=== PATIENT | female | born 1965 | race Caucasian/White ===

== ENCOUNTER 2017-07-23 16:55 | Emergency (ER) | payer OTHER ==
[~2017-07-23] VITALS: Ht 177.8 cm; Wt 90.7 kg
--- NOTE | ~2017-07-23 | EKG ---
[address] [address] ELECTROCARDIOGRAM REPORT Name: ANT HAZEL Room #: [facility]#: [id number] Admission: 07/23/17 Attend Phys: Discharge: 07/23/17 Date of : 69 Report #: [id number] THIS REPORT FOR: //name// [facility] ED Test Date: 2017-07-23 Test Time: 17:22:33 Pat Name: ANT HAZEL Department: Room: Gender: F [employer] Director: MZOOK : 1965 Requested By: Ronald Leroy Order Number: [id number] MD: Jermaine Asher Measurements Intervals [place] Rate: 89 P: 51 NV: 138 QRS: 11 QRSD: 80 T: 51 QT: 377 QTc: 459 Interpretive Statements Sinus rhythm No significant abnormality No previous ECG available for comparison Electronically Signed On 07-24-2017 7:59:00 CDT by Jermaine Asher [email or web address] <ELECTRONICALLY SIGNED> By: Jermaine Asher MD, [facility] 07/24/17 [id number] 1722 1722 Jermaine Asher MD, FACC /EPI
[~2017-07-23 16:55] MED LIST: BUSPAR30 MG PO; CIPROFLOXACIN500 M1 PO; CLONAZEPAM 0.50.5 M1; FENOFIBRATE160 MG; HYDROCODON-ACE1 EAC5; HYDROXYZINE HCL50 MG; LEVSIN0.125 MG PO; MIRAPEX0.125 MG; OMEPRAZOLE40 MG; PAROXETINE HCL20 MG; PERCOCET 5-3251 EACH PO; ULTRAM 50MG TAB50 MG PO
[2017-07-23] MEDS ORDERED: LISINOPRIL20 MG PO (17:02)
[2017-07-23] MEDS ORDERED: ESTRADIOL 1 MG T1 M1 PO (17:04)
[2017-07-23 17:28] LABS: ABSOLUTE NEUTROPHILS 6.2 thou/uL (1.4-8.2); BASOPHILS 0.7 % (0.0-2.0); EOSINOPHILS 1.4 % (0.0-3.0); HEMATOCRIT 34.6 % (37.0-47.0); HEMOGLOBIN 11.5 gm/dL (12.0-15.0); LYMPHOCYTES 32.2 % (24.0-44.0); MCH 27.4 pg (26.0-34.0); MCHC 33.2 g/dL (28.0-37.0); MCV 82.5 fL (80.0-100.0); MONOCYTES 5.6 % (1.0-8.0); PLATELET COUNT 293 thou/uL (150-400); POLYS 60.1 % (36.0-66.0); WBC 10.2 thou/uL (4.0-11.0)
[2017-07-23 17:37] LABS: ANION GAP 7 mmol/L (7-16); BUN 8 mg/dL (7-18); CALCIUM 9.5 mg/dL (8.5-10.1); CHLORIDE 106 mmol/L (98-107); CO2 26 mmol/L (21-32); CREATININE 0.8 mg/dL (0.6-1.0); GLUCOSE 112 mg/dL (74-106); POTASSIUM 3.5 mmol/L (3.5-5.1); SODIUM 139 mmol/L (136-145)
[2017-07-23 17:46] LABS: ALBUMIN 3.8 g/dL (3.4-5.0); LIPASE 75 U/L (73-393); SGOT 19 U/L (15-37); SGPT 17 U/L (30-65); TOTAL BILIRUBIN 0.6 mg/dL (<0.1-1.0); TOTAL PROTEIN 7.4 g/dL (6.4-8.2); TROPONIN-I < 0.04 ng/mL (<0.06)
[2017-07-23 18:37] LABS: URINE BILIRUBIN NEGATIVE (Negative); URINE BLOOD TRACE (Negative); URINE CLARITY CLEAR; URINE COLOR YELLOW; URINE GLUCOSE-RANDOM* NEGATIVE (Negative); URINE KETONES NEGATIVE (Negative); URINE LEUKOCYTES-REFLEX NEGATIVE (Negative); URINE NITRITE-REFLEX NEGATIVE (Negative); URINE PROTEIN (DIPSTICK) NEGATIVE (Negative); URINE SPECIFIC GRAVITY <= 1.005 (1.005-1.035); URINE UROBILINOGEN 0.2 E.U./dl (0.2-1.0)
[2017-07-23] MEDS ORDERED: ZOFRAN ODT8 MG PO (18:54)
== END 2017-07-23 22:40 | disposition home or self-care (01) ==
LOC: ER 16:55
PROVIDERS: Emergency Medicine
DX: R19.7 Diarrhea, unspecified (principal); R10.11 Right upper quadrant pain; R11.2 Nausea with vomiting, unspecified; I10 Essential (primary) hypertension; J44.9 Chronic obstructive pulmonary disease, unspecified; Z90.49 Acquired absence of other specified parts of digestive tract; F17.210 Nicotine dependence, cigarettes, uncomplicated